=== PATIENT | female | born 1935 | race Hispanic/Latino ===

== ENCOUNTER 2020-11-24 06:00 | Observation (INO) | payer OTHER ==
[2020-11-18 13:15] LABS: BASOPHILS % (AUTO) 0.3 % (0.0-5.0); EOSINOPHILS % (AUTO) 0.3 % (0.0-8.0); HEMATOCRIT 42.4 % (36-48); LYMPHOCYTES % (AUTO) 17.4 % (21.0-51.0); MEAN CORPUSCULAR HEMOGLOBIN 30.6 pg (27.0-33.0); MEAN CORPUSCULAR HGB CONC 32.3 g/dL (32.0-36.0); MEAN CORPUSCULAR VOLUME 94.9 fL (79-99); MONOCYTES % (AUTO) 10.4 % (3.0-13.0); NEUTROPHILS % (AUTO) 70.9 % (40.0-77.0); NUCLEATED RED BLOOD CELLS 0.3 % (0.0-0.19); PLATELET COUNT (AUTO) 232 K/uL (130-400); RED BLOOD CELL COUNT(AUTO) 4.47 MIL/uL (4.00-5.50); RED CELL DISTRIBUTION WIDTH 16.1 % (11.0-15.5)
[2020-11-22 08:35] LABS: CREATININE 2.5 mg/dL (0.5-1.5); POTASSIUM 4.8 mmol/L (3.5-5.1)
[2020-11-23 10:27] VITALS: BP 136/71
[~2020-11-24] VITALS: Ht 152.4 cm; Wt 62.8 kg
[2020-11-24] VITALS (14 sets, daily range): BP systolic 103–114; BP diastolic 51–74
[~2020-11-24 06:00] MED LIST: AMIO200T6 PO; APIX2.5T PO; FAMO40TA7 PO; FERROUS SULFATE PO; FOLI1TAB85 PO; FOLIC ACID PO; FURO40TA5 PO; INSU100I21 SQ; LISI2.5T13 PO; METO-391 PO; METO-408 PO; PANT40TA54 PO; SIMV40TA59 PO; SPIR50TA PO; VITAMIN B12 PO
[2020-11-24 06:52] LABS: INR 1.27 (0.85-1.15); PROTHROMBIN TIME 13.5 SEC (9.6-11.6)
[2020-11-24 06:53] LABS: PARTIAL THROMBOPLASTIN TIME 31.3 SEC (26.3-35.5)
[2020-11-24] MEDS ORDERED: 0.9%NACL 1000ML 1,000 ML IV ONE (07:24)
[2020-11-24] MEDS ORDERED: CEFAZOLIN SODIUM 1 GM VIAL ONE (07:43)
[2020-11-24] MEDS ORDERED: MEPERIDINE-PF 25 MG/ML SYG ONE (07:44)
[2020-11-24] MEDS ORDERED: MIDAZOLAM HCL 1 MG/ML 2ML VIAL ONE (07:44)
[2020-11-24] MEDS ORDERED: HEPARIN 10,000 UNIT/10ML (1,000 UNIT/ML) VIAL ONE (07:44)
[2020-11-24] MEDS ORDERED: IODIXANOL 320 MG/ML 100 ML VIAL ONE (07:44)
[2020-11-24] MEDS ORDERED: BUPIVACAINE/PF 0.25% 30ML VIAL IJ ONE (07:47)
[2020-11-24] MEDS ORDERED: LIDOCAINE HCL 1% MDV 50ML VIAL ONE (07:48)
[2020-11-24] MEDS ORDERED: LIDOCAINE HCL 400MG/20ML VIAL ONE (09:39)
[2020-11-24] MEDS ORDERED: TRAMADOL HCL 50 MG TABLET PO PRN (11:30)
[2020-11-24] MEDS: SPIRONOLACTONE 25 MG TAB PO SCH (15:53)
[2020-11-24] MEDS: FAMOTIDINE 20MG TAB PO SCH (15:53)
[2020-11-24] MEDS ORDERED: SIMVASTATIN 20 MG TABLET PO SCH (21:00)
[2020-11-25] VITALS: BP 104/69
[2020-11-25 04:00] VITALS: BP 95/51
[2020-11-25 07:30] VITALS: BP 97/58
[2020-11-25] MEDS ORDERED: FOLIC ACID 1 MG TABLET PO SCH (09:00)
[2020-11-25] MEDS ORDERED: FUROSEMIDE 40 MG TABLET PO SCH (09:00)
[2020-11-25] MEDS ORDERED: PANTOPRAZOLE 40 MG TAB DR PO SCH (09:00)
[2020-11-25] MEDS ORDERED: INSULIN GLARGINE 100 UNITS/ML 10 ML VIAL SQ SCH (09:00)
[2020-11-25] MEDS ORDERED: CYANOCOBALAMIN (VITAMIN B-12) 1,000 MCG TABLET PO SCH (09:00)
[2020-11-25] MEDS: SPIRONOLACTONE 25 MG TAB PO SCH (09:00)
[2020-11-25] MEDS ORDERED: FERROUS SULFATE 325 MG TABLET.DR PO SCH (09:00)
[2020-11-25] MEDS ORDERED: LISINOPRIL 2.5 MG TABLET PO SCH (09:00)
[2020-11-25] MEDS ORDERED: Vitamin B Complex/Vit C/Folic Acid PO SCH (09:00)
[2020-11-25] MEDS ORDERED: METOPROLOL SUCCINATE 50 MG TAB.SR.24H PO SCH (09:00)
[2020-11-25] MEDS: FAMOTIDINE 20MG TAB PO SCH (09:55)
[2020-11-25] MEDS: INSULIN HUMULIN R 100 UNIT/ML 3ML SQ SCH ×2 (10:07→14:00)
[2020-11-25 11:00] VITALS: BP 102/64
== END 2020-11-25 17:45 | disposition home or self-care (01) ==
LOC: DAH 06:00 → DAHIP 06:01 → DAH 06:01 → 4CH 15:14
PROVIDERS: ADMIT Internal Medicine; ATTEND Internal Medicine
DX: I42.0 Dilated cardiomyopathy (principal); I48.21 Permanent atrial fibrillation; I13.0 Hypertensive heart and chronic kidney disease with heart failure and stage 1 through stage 4 chronic kidney disease, or unspecified chronic kidney disease; E11.22 Type 2 diabetes mellitus with diabetic chronic kidney disease; I50.22 Chronic systolic (congestive) heart failure; N18.4 Chronic kidney disease, stage 4 (severe); E78.5 Hyperlipidemia, unspecified; D68.59 Other primary thrombophilia; H40.9 Unspecified glaucoma; I35.0 Nonrheumatic aortic (valve) stenosis; I49.2 Junctional premature depolarization; J44.9 Chronic obstructive pulmonary disease, unspecified; Z85.528 Personal history of other malignant neoplasm of kidney; Z79.01 Long term (current) use of anticoagulants; Z90.710 Acquired absence of both cervix and uterus; Z95.810 Presence of automatic (implantable) cardiac defibrillator
CPT/HCPCS: 33225; 33249; 36415 ×3; 71045; 80048; 82948 ×6; 85025; 85610; 85730; 93005 ×3; 93619; 93650; 96360; 96361; A4215; A4216; A4221; A4222; A4223 ×3; A4606; A4649 ×2; A4663; C1732 ×2; C1769; C1882; C1894; C1895; C1900; G0378 ×31; J0690; J1644 ×2; J1815 ×2; J2175; J2250; J3490 ×3; J7030; Q9967; 99156; 99157